=== PATIENT | male | born 1960 | race Caucasian/White ===

== ENCOUNTER 2018-07-23 15:12 | Outpatient (RCR) | payer BC | END 2018-10-12 | disposition home or self-care (01) | LOC: COL.CR | DX: Z48.812 Encounter for surgical aftercare following surgery on the circulatory system (principal); Z95.1 Presence of aortocoronary bypass graft; I25.10 Atherosclerotic heart disease of native coronary artery without angina pectoris ==

== ENCOUNTER 2020-03-19 23:25 | Inpatient (IN) | payer OTHER ==
[~2020-03-19] VITALS: Ht 182.9 cm; Wt 111.6 kg
[2020-03-19] MEDS ORDERED: PLAVIX 75MG TAB75 MG PO (23:44)
[2020-03-19] MEDS ORDERED: TOPROL XL 50MG50 MG PO (23:44)
[2020-03-19] MEDS ORDERED: ASPIRIN 81M81 MG/TA2 PO (23:44)
[2020-03-19] MEDS ORDERED: PRINIVIL10 MG PO (23:45)
[2020-03-19] MEDS ORDERED: CRESTOR20 MG PO (23:45)
[2020-03-19] MEDS ORDERED: DEPRESSION MED (23:45)
[2020-03-19] MEDS ORDERED: INSOMNIA MED (23:46)
[2020-03-20] VITALS (522 sets, daily range): BP systolic 123–157; BP diastolic 72–83; PULSE 82–94; TEMP 97.5–99; O2SAT 84–98
[2020-03-20 00:16] LABS: BASO # 0.1 (0.0-0.2); BASO % 0.4 % (0.0-2.0); EOS # 0.4 (0.0-0.7); EOS % 3.2 % (0-4.0); GRAN # 8.3 (1.4-6.5); GRAN % 67.9 % (42.2-75.2); HEMOGLOBIN 13.2 g/dl (13.5-18.0); LYMPH # 2.1 (1.2-3.4); LYMPH % 17.3 % (20.0-51.0); MEAN CELL VOLUME 91 fl (80.0-100.0); MEAN CORPUSCULAR HEMOGLOBIN 30 pg (27.0-31.0); MEAN CORPUSCULAR HGB CONC 33 g/dl (33.0-37.0); MEAN PLATELET VOLUME 9.4 fl (7.4-10.4); MONO # 1.3 (0.1-0.6); PLATELET COUNT 196 K/mm3 (130-400); RED BLOOD COUNT 4.38 M/mm3 (4.20-5.60); REDCELL DISTRIBUTION WIDTH-CV 14.6 % (11.5-14.5)
[2020-03-20 00:22] LABS: ALANINE AMINOTRANSFERASE 20 U/L (4-49); ALBUMIN 3.9 gm/dL (3.5-5.0); ALKALINE PHOSPHATASE 95 U/L (50-136); ANION GAP 7 mmol/L (7-16); AST,SGOT 23 U/L (15-37); BILIRUBIN,TOTAL 1.3 mg/dL (0.0-1.0); BLOOD UREA NITROGEN 22 mg/dL (9-20); CARBON DIOXIDE 25 mmol/L (22-30); CHLORIDE 103 mmol/L (98-107); CREATININE, serum 1.37 (0.66-1.25); GLUCOSE 102 mg/dL (74-106); POTASSIUM 4.5 mmol/L (3.4-5.0); SODIUM 135 mmol/L (137-145); TOTAL PROTEIN 7.4 gm/dL (6.4-8.2)
[2020-03-20 00:33] LABS: TROPONIN-I < 0.012 ng/mL (0.000-0.035)
[2020-03-20 01:07] LABS: INR 1.2 (0.8-3.0); PROTHROMBIN TIME 13.3 SECONDS (9.7-12.8)
[2020-03-20 01:09] LABS: PARTIAL THROMBOPLASTIN TIME 39.4 SECONDS (26.0-37.0)
[2020-03-20 01:28] LABS: COLLECTION METHOD CLEAN CATCH
[2020-03-20 01:38] LABS: MUCOUS Present /lpf; PH 5 (5-8); SQUAMOUS EPITHELIAL 0-2 /hpf; URINE APPEARANCE Clear; URINE BACTERIA None Seen /hpf; URINE BILIRUBIN Negative (NEGATIVE); URINE BLOOD Negative (NEGATIVE); URINE COLOR Yellow; URINE GLUCOSE Negative (NEGATIVE); URINE KETONE Negative (NEGATIVE); URINE LEUKOCYTE ESTERASE Negative (NEGATIVE); URINE NITRATE Negative (NEGATIVE); URINE PROTEIN(semi-quant) Negative (NEGATIVE); URINE RBC 0-2 /hpf; URINE UROBILINOGEN Negative (NEGATIVE)
--- NOTE | 2020-03-20 07:07 | NUR ---
PT ADMITTED FROM ED TO ICU 8, PT CURRENTLY ON HEPERIN GTT AND HEP XA ORDERED. DRSG ON LEFT STUMP REMOVED FOR ASSESSMENT.
[2020-03-20] MEDS ORDERED: DESYREL 50MG50 MG PO (07:24)
[2020-03-20] MEDS ORDERED: LEXAPRO 10MG10 MG PO (07:25)
[2020-03-20] MEDS ORDERED: NATURAL IRON65 MG PO (07:26)
[2020-03-20 08:02] LABS: HEMATOCRIT 37.7 % (42.0-52.0); HEMOGLOBIN 12.5 g/dl (13.5-18.0)
--- NOTE | 2020-03-20 09:01 | NUR ---
Pt moved over to CU room 17. Pt is A/O x4. His breathing is tachypneic, denies SOB. Inspiratory wheeze to R lung. L lung CTA. HR even and regular but tachy. +BS. Pt reports pain to lower side of right ribs 5/10, denies need for pain medication at this time. LLE amputation site has no edema or bruising. Some scabbed over sites to leg. POC discussed with patient who verbalizes understanding. No needs at this time. Call light within reach.
[2020-03-20 11:07] LABS: PARTIAL THROMBOPLASTIN TIME 51.8 SECONDS (26.0-37.0)
--- NOTE | 2020-03-20 14:13 | NUR ---
SW met with the patient to discuss discharge plan. The patient lives in [place] with his , Maria Del Carmen (ph#[phone]). 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 He states that he has since been home and does home exercise programs. He reports independence with ADLs and has a walker and wheelchair. The patient receives primary care at the [facility] and he also receives his medications through the [facility]. He reports no difficulties obtaining his meds. The patient does not have a DPOA-HC and he was not interested in completing a DPOA-HC at this time. The patient plans to return home with his upon discharge. SW to continue to follow as needed.
--- NOTE | 2020-03-20 19:35 | NUR ---
Patient is up at the toilet at this time. He was assisted there by previous shift, now calls for assistance to return to bed. Patient helped to bed and bed returned to normal position. Requested a walker from [employer] as this is how the patient gets around at home. Assessment complete, see shift assessment for details. Patient does complain of some pain, morphine provided. Vitals obtained and remain stable. He is a little SOA after exertion, but recovers quickly. Patient has no further needs at this time. Will continue to monitor. Call light within reach.
[2020-03-21] VITALS (240 sets, daily range): BP systolic 140–142; BP diastolic 76–90; PULSE 76–84; TEMP 98.1–98.5; O2SAT 90–97
[2020-03-21 06:20] LABS: BASO % 0.5 % (0.0-2.0); EOS # 0.5 (0.0-0.7); EOS % 5.8 % (0-4.0); GRAN # 4.8 (1.4-6.5); GRAN % 61.2 % (42.2-75.2); HEMATOCRIT 37.2 % (42.0-52.0); HEMOGLOBIN 12.1 g/dl (13.5-18.0); LYMPH # 1.6 (1.2-3.4); LYMPH % 20.7 % (20.0-51.0); MEAN CELL VOLUME 92 fl (80.0-100.0); MEAN CORPUSCULAR HEMOGLOBIN 30 pg (27.0-31.0); MEAN CORPUSCULAR HGB CONC 33 g/dl (33.0-37.0); MEAN PLATELET VOLUME 9.2 fl (7.4-10.4); MONO # 0.9 (0.1-0.6); MONO % 11.4 % (1.7-9.3); PLATELET COUNT 184 K/mm3 (130-400); RED BLOOD COUNT 4.04 M/mm3 (4.20-5.60); REDCELL DISTRIBUTION WIDTH-CV 14.5 % (11.5-14.5)
[2020-03-21 06:44] LABS: CALCIUM 8.5 mg/dL (8.4-10.2); CREATININE, serum 1.03 (0.66-1.25); POTASSIUM 4.3 mmol/L (3.4-5.0)
--- NOTE | 2020-03-21 07:13 | NUR ---
Bedside report given to NADER Rodriguez
--- NOTE | 2020-03-21 08:16 | NUR ---
Assessment completed, alert/oriented, vital signs stable/ slightly HTN and will discuss with hospitalist, denies having chest discomfort or feeling SOA while at rest, upon exam his lungs are CTA but has some insp. wheezing noted throughout all lung gutierrez, heart RRR/SR on tele, distal pulses are palpable, he is sitting up eating breakfast at this time and denies other needs
[2020-03-21] MEDS ORDERED: ELIQUIS 5MG PO (11:12)
--- NOTE | 2020-03-21 12:42 | NUR ---
Discharge instructions reveiwed with the patient, isntructed to follow up with PCP and Cardiolgoy as scheduled, discussed medications/ changes, starting Eliquis and stopping plavix, script for Eliquis sent to pharmacy and 2 doses given to patient to get him by untill he can pick script up at [facility] tomutrow, IV removed, patient is leaving with his , I will personalyl escort him out the door
== END 2020-03-21 13:13 | disposition home or self-care (01) | DRG 176 ==
LOC: COL.ER 23:25 → MEDICAL 03-20 02:12 → ICU 03-20 02:12 → IMCU 03-20 08:51
PROVIDERS: Emergency Medicine; Nurse Practitioner Family; Physician Assistant; ADMIT Hospitalist
DX: I26.99 Other pulmonary embolism without acute cor pulmonale (principal); E87.1 Hypo-osmolality and hyponatremia; N17.9 Acute kidney failure, unspecified; I73.9 Peripheral vascular disease, unspecified; I25.10 Atherosclerotic heart disease of native coronary artery without angina pectoris; Z95.5 Presence of coronary angioplasty implant and graft; D64.9 Anemia, unspecified; I10 Essential (primary) hypertension; E78.5 Hyperlipidemia, unspecified; F32.9 Major depressive disorder, single episode, unspecified; G47.00 Insomnia, unspecified; Z89.512 Acquired absence of left leg below knee
CPT/HCPCS: 99222-AI; 99239; J1644; J2270; J3010; J7030; Q9967